=== PATIENT | female | born 2000 | race Caucasian/White ===

== ENCOUNTER 2020-04-28 08:06 | Emergency (ER) | payer OTHER, SELFPAY ==
[2020-04-28 08:15] VITALS: BP 145/65; PULSE 79; RESP 14; TEMP 36.5; O2SAT 100
--- NOTE | 2020-04-28 08:17 | ED.NAVMDI ---
HPI - Nausea/Vomiting/Diarrhea General Chief complaint: Nausea/Vomiting/Diarrhea Stated complaint: nausea and stomach pain Time Seen by Provider: 04/28/20 08:17 Source: patient and RN notes reviewed History of Present Illness HPI Narrative: Patient is a 19-year-old female who presents the urgent care with complaints of nausea, vomiting, diarrhea which is resolved. Patient states that her last meal, with her partner was a few days ago, eating [place] takeout. Patient believes that made them feel sick in both people are here to be seen today. Patient states that she was having some mid abdominal pain with the diarrhea and vomiting. States that she vomited once yesterday and had 1 loose stool this morning. However, patient states her symptoms have nearly resolved and she needs a work note . Patient currently denies any symptoms at this time. Denies of any fever. States that she took ibuprofen for headache. No other acute complaints. No acute distress noted. Patient read the plan of care. Related Data Home Medications Medication Instructions Recorded Confirmed No Home Medications 04/28/20 04/28/20 Allergies Allergy/AdvReac Type Severity Reaction Status Date / Time No Known Allergies Allergy Verified 04/28/20 08:21 Review of Systems Review of Systems: Narrative: CONSTITUTIONAL: Denies fever, chills, or sweats. EYES: Denies visual changes, redness, or discharge. ENT: Denies rhinorrhea, congestion, sore throat, or otalgia. CARDIOVASCULAR: Denies chest pain, palpitations, or edema. RESPIRATORY: Denies cough or dyspnea. GASTROINTESTINAL: Reports of resolved abdominal pain, nausea, vomiting GENITOURINARY: Denies dysuria or hematuria. SKIN: Denies rash or itching. MUSCULOSKELETAL: Denies back pain, joint pain, or myalgia. NEUROLOGIC: Denies headache, numbness, or weakness. All other systems reviewed are negative, except as documented in HPI. PMFSH Comments At the time of my signature, I reviewed and agree with the nursing past medical, surgical, social, and family history. There is no relevant family history pertinent to the patient complaint. Exam Narrative: Exam Narrative: GENERAL: This is a well-nourished, well-developed patient, in no apparent distress. HEAD: normocephalic, atraumatic. EYES: PERRL. Sclera clear/white. Vision is grossly intact. EARS: External ears normal NOSE: External nose normal with no obvious nasal discharge, nares without redness, no rhinorrhea. THROAT: Mucous membranes moist NECK: Neck supple GASTROINTESTINAL: Abdomen soft, non-tender, nondistended. Bowel sounds are active. SKIN: warm, intact with no suspicious lesions or rash, good texture and turgor. NEURO: awake, alert, and oriented to person, place and time. There were no obvious focal neurologic abnormalities. EXTREMITIES: No clubbing, cyanosis, or edema. BACK: Negative bilateral CVA tenderness Course Vital Signs Vital signs: Vital Signs Temperature 97.7 F 04/28/20 08:15 Pulse Rate 79 04/28/20 08:15 Respiratory Rate 14 04/28/20 08:15 Blood Pressure 145/65 H 04/28/20 08:15 Pulse Oximetry 100 04/28/20 08:15 Temperature 97.7 F 04/28/20 08:15 Pulse Rate 79 04/28/20 08:15 Respiratory Rate 14 04/28/20 08:15 Blood Pressure 145/65 H 04/28/20 08:15 Pulse Oximetry 100 04/28/20 08:15 Reviewed?patient is informed that they may have pre-hypertension or hypertension based on a blood pressure reading in the department. I recommend the patient call the primary care provider listed on their discharge instructions or a physician of their choice this week to arrange follow-up for further evaluation of possible pre-hypertension or hypertension. MDM - Nausea/Vomiting/Diarrhea MDM Narrative Medical decision making narrative: Advised the patient to take Pepto-Bismol as needed [id number]. Eat a bland diet for the next couple days and increase water intake. If symptoms return and you are experiencing severe abdomi
== END 2020-04-28 08:38 | disposition home or self-care (01) ==
PROVIDERS: Emergency Provider Nurse Practitioner Family
DX: R19.7 Diarrhea, unspecified (principal)
CPT/HCPCS: 99211; G0463